=== PATIENT | female | born 1945 | race Caucasian/White ===

== ENCOUNTER → 2017-02-06 | Outpatient (CLI) | payer MEDICARE, BC | END | disposition home or self-care (01) | LOC: RAD 11:48 | PROVIDERS: ATTEND Family Medicine | DX: J84.10 Pulmonary fibrosis, unspecified (principal); Z95.0 Presence of cardiac pacemaker | CPT/HCPCS: 71020 ==

== ENCOUNTER 2019-01-24 18:25 | Emergency (ER) | payer MEDICARE, BC ==
[~2019-01-24] VITALS: Ht 152.4 cm; Wt 55.0 kg
--- NOTE | 2019-01-24 18:43 | NUR ---
PT PRESENTS TO ED WITH C/O GLF IN GARAGE. STATES SHE TRIPPED OVER A CASE OF DIET COKE. COMPLIAINING OF SEVERE RIGHT SHOULDER AND UPPER LEG PAIN. ALSO STATES LEFT CHEEK PAIN, BUT NO HEMATOMA CURRENTLY PRESENT. +CMS WITH RIGHT ARM, HOWEVER UNABLE TO MOVE AT THIS TIME DUE TO PAIN. PT DENIES LOC AND NECK TENDERNESS. PT ON CONT. PULSE OX AND BP.
[2019-01-24] MEDS ORDERED: ONDANSETRON 2MG/ML, 2ML ONE (18:45)
[2019-01-24] MEDS ORDERED: HYDROmorphone 2 MG/ML, 1ML ONE (18:46)
[2019-01-24] MEDS: HYDROmorphone 2 MG/ML, 1ML IVPush PRN (18:49)
--- NOTE | 2019-01-24 18:50 | NUR ---
PT MEDICATED PER OCT. 5 RIGHTS VERIFIED PRIOR. 3 P'S ADDRESSED.
[2019-01-24] MEDS ORDERED: ONDANSETRON 2MG/ML, 2ML IVPush ONE (19:00)
[2019-01-24 19:02] VITALS: BP 119/72
--- NOTE | 2019-01-24 19:03 | NUR ---
PT RESTING ON GURNEY, MONITORS IN PLACE, CALL LIGHT WITHIN REACH. ERP AT BEDSIDE FOR REEVAL
--- NOTE | 2019-01-24 19:04 | NUR ---
REPORT TO AMANDA DERAS.
[2019-01-24] MEDS ORDERED: WARF1TAB74 PO (19:08)
[2019-01-24] MEDS ORDERED: CARV3.122 PO (19:08)
[2019-01-24] MEDS ORDERED: LOSA25TA25 PO (19:08)
[2019-01-24] MEDS ORDERED: METF500T17 PO (19:08)
[2019-01-24] MEDS ORDERED: [UNRECOGNIZED DRUG - REMARK] (19:38)
[2019-01-24] MEDS ORDERED: FURO20TA3 PO (19:38)
[2019-01-24] MEDS ORDERED: [UNRECOGNIZED DRUG - REMARK] (19:38)
--- NOTE | 2019-01-24 19:40 | NUR ---
SNUFF GRINDER AT PT'S BEDSIDE TO APPLY RIGHT ARM SLING
== END 2019-01-24 20:03 | disposition home or self-care (01) ==
LOC: ED 19:57
DX: S42.351A Displaced comminuted fracture of shaft of humerus, right arm, initial encounter for closed fracture (principal); S09.8XXA Other specified injuries of head, initial encounter; S89.91XA Unspecified injury of right lower leg, initial encounter; E11.9 Type 2 diabetes mellitus without complications; Z95.0 Presence of cardiac pacemaker; W01.0XXA Fall on same level from slipping, tripping and stumbling without subsequent striking against object, initial encounter; Y93.89 Activity, other specified; Y92.009 Unspecified place in unspecified non-institutional (private) residence as the place of occurrence of the external cause; Y99.8 Other external cause status
CPT/HCPCS: 73060; 96374; 96375; 99283; J1170; J2405